=== PATIENT | male | born 1935 | race Caucasian/White ===

== ENCOUNTER 2018-12-05 21:45 | Observation (INO) ==
[2018-12-05] MEDS ORDERED: MORPHINE SULFATE 2 MG/ML DISP.SYRIN IV ONE ×2 (22:20→23:29)
--- NOTE | 2018-12-05 22:24 | ERNOTE ---
Lower Extremity HPI - Narrative Date of Service: 12/05/18 - General Lower Extremities Pain: leg: left Time Seen by Provider: 12/05/18 21:54 Source: patient, family - Immun/Allergies/Home Medications Immunizations: IMMUNIZATION HX Immunizations Up to Date Yes Hx Pneumococcal Vaccination Yes Allergies/Adverse Reactions: Allergies Allergy/AdvReac Type Severity Reaction Status Date / Time No Known Drug Allergies Allergy Verified 12/05/18 22:00 Home Medications: HOME MEDICATIONS Unobtainable 12/06/18 [Last Taken Unknown] - History of Present Illness Narrative: This is an 83-year-old male who comes to the emergency department around 10:00 in the evening. He says that over the last 2 to 3 weeks he has had a progressive swelling in his legs. He says that it is now started to leak fluid. He does have a history of CHF. Tonight he came in because the right leg started hurting and he was concerned he might have a blood clot. He has no history of blood clots in his legs. He is on anticoagulation. He has atrial fibrillation. The patient reports that his mouth is been very dry. He has been talking to his family doctor about the leg swelling and is taken extra doses of Lasix but no help. His urine output has decreased. Patient also says that he is getting progressive dyspnea on exertion and feels like his abdomen is slightly swollen. He just does not feel good. No fever or chills. No chest pain. No coughing. No vomiting or diarrhea. No significant abdominal pain. No headache or blurred vision. Review of Systems - Review of Systems Constitutional: Present: malaise EYE: Present: no symptoms reported ENT: Present: no symptoms reported Respiratory: Present: shortness of breath. Absent: cough, wheezing Cardiology: Present: no symptoms reported Gastrointestinal/Abdominal: Present: other - Feels generally slightly swollen Genitourinary: Present: decreased urinary output Musculoskeletal: Present: other - Swelling both legs Skin: Present: other - Little vesicles on both legs that have popped and are starting to release a clear-colored fluid Neurological: Present: no symptoms reported. Absent: seizure, weakness, numbness Endocrine: Present: no symptoms reported Hematologic/Lymphatic: Present: no symptoms reported Psych: Present: no symptoms reported All Other Systems: All systems neg except as marked Medical History (Updated 12/06/18 @ 00:46 by Evelyn Iniguez) Congestive heart failure Diabetes Hyperlipemia Hypertension Surgical History: Surgical History (Updated 12/06/18 @ 01:33 by Rebecca Biggs, RN) Amputated toe of left foot H/O neck surgery Hx of heart bypass surgery Rotator cuff arthropathy S/P appendectomy Stricture of vein graft Family History: Family History (Updated 12/05/18 @ 22:02 by Aliyah Miles, CARLY) Other No pertinent family history Social History: Preferred Language Malaysian Smoking Status Never smoker Alcohol Use none Drug Use none No Social History Section defined Physical Exam - Physical Exam General Appearance: Present: wd/wn, alert, no apparent distress Head Exam: Present: normal inspection, no evidence of injury Eye Exam: Normal inspection: bilateral, PERRL: bilateral Ears, Nose, Throat: Present: other - Oropharynx is dry. Lips are dry Neck: Present: other - Patient has significant JVD to the ear Respiratory: Present: lungs clear, other - I am unable to hear any crackles on the chest Cardiovascular/Chest: Present: other - Irregularly irregular at a rate of around 100. Systolic murmur over the left upper sternal border loudest Gastrointestinal/Abdominal: Present: normal bowel sounds, nontender, nondistended, soft Back Exam: Present: normal range of motion, no vertebral tenderness Extremity Exam: Present: other - Patient has 3+ pitting edema bilateral lower extremities. The skin of both legs has chronic venous changes. The patient has small vesicles present on both legs below the knee. Some of these have already ruptured. Leaking clear-colored fluid. He is missing his second toe on the left foot. I do not see any cellulitis. Some mild tenderness to palpation over the calf of the right leg Neurological Exam: Present: alert, oriented, normal mood/affect, no motor/sensory deficits Skin Exam: Present: other - Chronic venous stasis changes and vesicles as described above Lymphatic Exam: Present: no adenopathy Progress - Results and Orders Patient's Lab Results:: I have reviewed the patient's lab results. - Vital Signs Patient's Vital Signs:: I have reviewed the patient's vital signs. Vital Signs: Vital Signs 12/05/18 21:54 Temperature 38.0 C Pulse Rate 106 H Respiratory Rate 18 O2 Sat by Pulse Oximetry 97 - EKG EKG #1 EKG read: Interp. by me EKG Comments: EKG demonstrates A. fib with a controlled ventricular rate of 96. However this may also be sinus rhythm. There is a wandering baseline which makes interpretation difficult. [place] is left at -21. Signs of left bundle branch block. I do not see any ST elevation although the computer does interpret this is acute DE with ST elevation. I am ordering a repeat EKG #2 EKG read: Interp. by me EKG Comments: EKG demonstrates what I still believe to be atrial fibrillation with a ventricular rate of 84. QRS is widened at 170. No definite ST elevation. Baseline is again a bit wandering but improved from previous. I cannot identify any definite P waves - X-Ray X-Ray #1 X-Ray: chest Interpretation: Interp. by me X-ray Comments: Chest x-ray shows perhaps some [place] very mild central vascular congestion. No obvious overt failure. No infiltrate. - Progress/Reassessment Chief Complaint: Lower Extremity Pain/ Injury Progress:: Improved Progress Note-Subjective: 12/05/18 23:51 Got better with some pain medicine but then came back needed some more. Going to admit to the hospital Plan - Plan Plan: I discussed the case with the family doctor assistant professor of religion, Dr. Parks. She agrees with me that the patient's elevated troponin is likely a combination of the kidney dysfunction as well as the CHF. She is recommended that I give the patient small dose of Lasix IV, 40 mg. She requests that I repeat the troponin. If it is going up at all I agree with her that transfer would probably be appropriate. Long visits within the same general area the patient could be managed here at least initially with the understanding that if things change significantly he would need to be transferred. The patient is okay with this Departure Clinical Impression: CHF (congestive heart failure) - Departure Disposition: Still a patient Condition: Fair
[2018-12-05 22:37] LABS: Hematocrit 42.8 % (42.0-52.0); Hemoglobin 13.4 gm/dL (13.5-18.0); Mean Cell Volume 97.1 fl (78-100); Mean Corpuscular Hemoglobin 30.4 pg (27-31); Mean Corpuscular Hgb Conc 31.3 g/dl (32-36); Mean Platelet Volume 10.6 fl (8-11.3); Neutrophil # 8.4 K/mm3 (1.3-6.0); Neutrophil % 81.5 % (42-75.0); Platelet Count 119 K/mm3 (150-450); Red Blood Count 4.41 M/mm3 (4.7-6.0); Red Cell Distribution Width 14.4 % (11.5-14.0); White Blood Count 10.2 K/mm3 (4.0-10.5)
[2018-12-05 22:43] LABS: Urine Bilirubin Negative (NEGATIVE); Urine Blood Negative /ul (NEGATIVE); Urine Ketone Negative (NEGATIVE); Urine Nitrite Negative (NEGATIVE); Urine Protein Negative (NEGATIVE); Urine Urobilinogen Normal (NORMAL)
[2018-12-05 22:50] LABS: Urine Appearance Clear (CLEAR); Urine Bacteria TRACE; Urine Color Yellow; Urine RBC None Seen /hpf (0-5); Urine WBC None Seen /hpf (0-5)
[2018-12-05 22:57] LABS: Albumin * 3.7 gm/dl (3.4-5.0); Anion Gap 16.6 mmol/L (6.8-13.8); BUN/Creatinine Ratio 30.2 (9.0-21.6); Bilirubin, Total 1.3 mg/dL (0.0-1.1); Ca. Corrected For Albumin 9.8 mg/dL (8.4-10.2); Calcium * 9.9 mg/dL (7.9-10.9); Carbon Dioxide 27.7 mmol/L (24-32.6); Potassium 3.3 mmol/L (3.4-4.6); Total Protein 8.3 gm/dL (6.2-8.2)
[2018-12-05 22:58] LABS: Troponin I 0.341 ng/mL (0.00-0.10)
[2018-12-05 23:16] LABS: Prothrombin Time (Patient) 18.3 Seconds (9.1-10.7)
[2018-12-05 23:19] LABS: INR 1.89 INR (0.92-1.08)
[2018-12-06] MEDS ORDERED: FUROSEMIDE 10 MG/ML VIAL IV ONE (00:11)
[2018-12-06] MEDS: oxyCODONE HCL/ACETAMINOPHEN 1 TAB TABLET PO PRN ×3 (03:22→17:48)
--- NOTE | 2018-12-06 11:05 | HP ---
Chief Complaint - Chief Complaint Date of Service: 12/06/18 Time of Service: 09:30 Chief Complaint: lower extremity swelling History of Present Illness: Patient with PMHx of CHF, afib on warfarin, previous ME, CKD, DM, chronic abdominal pain since open heart surgery, previous cellulitis, chronic lower extremity ulcers, chronic narcotic use presented to the ED for two weeks of increased swelling and right lower extremity pain. He is prescribed metolazone, and was trying to change his dose to see if the swelling would improve, but it was not beneficial. He states he was prescribed metformin in July, and developed lower extremity swelling at that time, so he stopped it, but has had problems with swelling ever since. He was having some shortness of breath, but denied CP. He has had abdominal pain ever since open heart surgery, and takes percocet and xanax for the pain. He states the xanax always helps his abdominal pain. He also takes 3 stool softeners daily due to constipation from the narcotics. He also has a history of foot ulcers that have been present for years. He has seen multiple providers, and has been unable to get them healed. He had his left 2nd digit amputated because of infection in the bone. His diabetes is well controlled, with an A1C of about 7.1%. He was given 40 mg IV lasix in the ED, and today he reports improvement in his swelling and SOB. Medical History (Updated 12/06/18 @ 13:11 by Aixa Parks DO) Congestive heart failure Diabetes Hyperlipemia Hypertension Surgical History: Surgical History (Updated 12/06/18 @ 01:33 by Rebecca Biggs RN) Amputated toe of left foot H/O neck surgery Hx of heart bypass surgery Rotator cuff arthropathy S/P appendectomy Stricture of vein graft Family History: Family History (Updated 12/05/18 @ 22:02 by Aliyah Miles RN) Other No pertinent family history Social History: Patient Lives/Resources Home Utilized Occupation Retired Preferred Language Armenian Do you have any hoahaoism or Yes: Orthodoxy cultural preference? Smoking Status Never smoker Have you smoked in the past 12 No months Do you dip or chew tobacco No Alcohol Use none Drug Use none No Social History Section defined Review Of Systems (GEN) - Review of Systems Generalized/Overall Review: Absent: Fever Respiratory: Present: Shortness of Breath. Absent: Cough Cardiac: Present: Edema. Absent: Chest Pain Abdominal: Present: Abdominal Pain, Constipation. Absent: Nausea Genitourinary: Present: No Symptoms Reported Musculoskeletal: Present: Joint Pain Skin: Present: Other - 2 ulcers of his left foot, one ulcer of right foot, one ulcer of left medial lower leg Immunizations: IMMUNIZATION HX Immunizations Up to Date Yes Hx Pneumococcal Vaccination Yes Allergies/Adverse Reactions: Allergies Allergy/AdvReac Type Severity Reaction Status Date / Time No Known Drug Allergies Allergy Verified 12/05/18 22:00 Home Medications: HOME MEDICATIONS Allopurinol [Zyloprim (Allopurinol)] 100 mg PO BID 12/06/18 [Last Taken Unknown] Alprazolam 1 mg PO TID PRN 12/06/18 [Last Taken Unknown] Docusate Sodium [Stool Softener] 100 mg PO BID 12/06/18 [Last Taken Unknown] Glimepiride [Amaryl] 2 tab PO BID 12/06/18 [Last Taken Unknown] Metolazone [Zaroxolyn] 5 mg PO DAILY 12/06/18 [Last Taken Unknown] Mupirocin [Bactroban] 1 appl TOPICAL DAILY 12/06/18 [Last Taken Unknown] Potassium Chloride [Klor-Con 10] 40 meq PO BID 12/06/18 [Last Taken Unknown] Warfarin Sodium [Coumadin] 2.5 mg PO MOFR 12/06/18 [Last Taken Unknown] Warfarin Sodium [Coumadin] 5 mg PO SUTUWETHSA 12/06/18 [Last Taken Unknown] oxyCODONE HCL/ACETAMINOPHEN [Percocet 7.5-325 mg Tablet] 1 ea PO QID PRN [Last Taken Unknown] Exam - Exam Vital Signs: Vital Signs - Last Taken Temp 37.1 C 12/06/18 06:16 Pulse 78 12/06/18 06:16 Resp 16 12/06/18 06:16 BP 127/57 12/06/18 06:16 Pulse Ox 95 12/06/18 06:16 Constitutional: Present: Alert, Oriented x3, Cooperative ENT Exam: Present: dry mucous membranes Neck: Absent: lymphadenopathy (R), lymphadenopathy (L) Respiratory: Present: decreased breath sounds. Absent: crackles, rales, rhonchi Cardiovascular/Chest: Present: irregularly irregular, edema - 2+ bilaterally Abdomen: Present: Normal bowel sounds, soft, nontender Skin Exam: Present: other - venous stasis changes of bilateral lower extremities. 2 cm superficial ulcer of medial mid left lower leg. 2 cm and 8 X 2 cm dry, blacked regions of left plantar surface and left heel, 2 cm blackened region of right lateral MP joint without active drainage Neurologic: Present: normal mood/affect Eye contact: Present: good eye contact Diagnostic Studies: Abnormal Lab Results 12/05/18 12/05/18 12/05/18 Range/Units 22:33 22:33 22:33 RBC 4.41 L (4.7-6.0) M/mm3 Hgb 13.4 L (13.5-18.0) gm/dL MCHC 31.3 L (32-36) g/dl RDW 14.4 H (11.5-14.0) % Plt Count 119 L (150-450) K/mm3 Immature Gran # (Auto) 0.04 H (0.000-0.0310) K/mm3 Neutrophils % 81.5 H (42-75.0) % Lymphocytes % 10.8 L (20-51) % Neutrophils # 8.4 H (1.3-6.0) K/mm3 Lymphocytes # 1.10 L (1.5-3.5) k/mm3 ESR (0-10) mm/hr PT 18.3 H (9.1-10.7) Seconds INR (Anticoag Therapy) 1.89 H (0.92-1.08) INR Potassium 3.3 L (3.4-4.6) mmol/L Anion Gap 16.6 H (6.8-13.8) mmol/L BUN 54 H (6-23) mg/dL Creatinine 1.79 H (0.4-1.4) mg/dL Est GFR (Non-Af Amer) 39 L (60-130) mL/min BUN/Creatinine Ratio 30.2 H (9.0-21.6) Random Glucose 186 H (70-110) mg/dL Total Bilirubin 1.3 H (0.0-1.1) mg/dL ALT 17 L (19-67) U/L Alkaline Phosphatase 268 H (50-170) U/L Troponin I 0.341 H* (0.00-0.10) ng/mL B-Natriuretic Peptide 1898 H (5-650) pg/mL Total Protein 8.3 H (6.2-8.2) gm/dL 12/05/18 12/06/18 Range/Units 23:50 09:49 RBC (4.7-6.0) M/mm3 Hgb (13.5-18.0) gm/dL MCHC (32-36) g/dl RDW (11.5-14.0) % Plt Count (150-450) K/mm3 Immature Gran # (Auto) (0.000-0.0310) K/mm3 Neutrophils % (42-75.0) % Lymphocytes % (20-51) % Neutrophils # (1.3-6.0) K/mm3 Lymphocytes # (1.5-3.5) k/mm3 ESR 54 H (0-10) mm/hr PT (9.1-10.7) Seconds INR (Anticoag Therapy) (0.92-1.08) INR Potassium (3.4-4.6) mmol/L Anion Gap (6.8-13.8) mmol/L BUN (6-23) mg/dL Creatinine (0.4-1.4) mg/dL Est GFR (Non-Af Amer) (60-130) mL/min BUN/Creatinine Ratio (9.0-21.6) Random Glucose (70-110) mg/dL Total Bilirubin (0.0-1.1) mg/dL ALT (19-67) U/L Alkaline Phosphatase (50-170) U/L Troponin I 0.301 H* (0.00-0.10) ng/mL B-Natriuretic Peptide (5-650) pg/mL Total Protein (6.2-8.2) gm/dL Laboratory Results WBC 10.2 K/mm3 (4.0-10.5) 12/05/18 22:33 RBC 4.41 M/mm3 (4.7-6.0) L 12/05/18 22:33 Hgb 13.4 gm/dL (13.5-18.0) L 12/05/18 22:33 Hct 42.8 % (42.0-52.0) 12/05/18 22:33 MCV 97.1 fl (78-100) 12/05/18 22:33 MCH 30.4 pg (27-31) 12/05/18 22:33 MCHC 31.3 g/dl (32-36) L 12/05/18 22:33 RDW 14.4 % (11.5-14.0) H 12/05/18 22:33 Plt Count 119 K/mm3 (150-450) L 12/05/18 22:33 MPV 10.6 fl (8-11.3) 12/05/18 22:33 Immature Gran % (Auto) 0.40 % (0.001-0.429) 12/05/18 22: Immature Gran # (Auto) 0.04 K/mm3 (0.000-0.0310) H 12/05/18 22:33 81.5 % (42-75.0) H 12/05/18 22:33 10.8 % (20-51) L 12/05/18 22:33 5.6 % (0.0-9) 12/05/18 22:33 1.2 % (0.0-3.0) 12/05/18 22:33 0.5 % (0.0-1.0) 12/05/18 22: Nucleated RBC % 0.0 k/mm3 (0-1) 12/05/18 22:33 8.4 K/mm3 (1.3-6.0) H 12/05/18 22:33 1.10 k/mm3 (1.5-3.5) L 12/05/18 22:33 0.6 k/mm3 (0.0-1.0) 12/05/18 22:33 0.1 k/mm3 (0.0-0.7) 12/05/18 22:33 Absolute Basophils 0.1 k/mm3 (0.0-0.1) 12/05/18 22:33 ESR 54 mm/hr (0-10) H 12/06/18 09:49 PT 18.3 Seconds (9.1-10.7) H 12/05/18 22:33 INR (Anticoag Therapy) 1.89 INR (0.92-1.08) H 12/05/18 22:33 Sodium 141 mmol/L (132-142) 12/05/18 22:33 142 mmol/L (130-142) 12/05/18 22:33 Potassium 3.3 mmol/L (3.4-4.6) L 12/05/18 22:33 Chloride 100 mmol/L (97-106) 12/05/18 22:33 Carbon Dioxide 27.7 mmol/L (24-32.6) 12/05/18 22:33 16.6 mmol/L (6.8-13.8) H 12/05/18 22:33 BUN 54 mg/dL (6-23) H 12/05/18 22:33 1.79 mg/dL (0.4-1.4) H 12/05/18 22:33 Est GFR (Non-Af Amer) 39 mL/min (60-130) L 12/05/18 22:33 30.2 (9.0-21.6) H 12/05/18 22:33 186 mg/dL (70-110) H 12/05/18 22:33 Calcium 9.9 mg/dL (7.9-10.9) 12/05/18 22:33 Calcium Adj for Albumin 9.8 mg/dL (8.4-10.2) 12/05/18 22:33 1.3 mg/dL (0.0-1.1) H 12/05/18 22:33 AST 18 U/L (0-48) 12/05/18 22:33 ALT 17 U/L (19-67) L 12/05/18 22:33 268 U/L (50-170) H 12/05/18 22:33 0.301 ng/mL (0.00-0.10) H* 12/05/18 23:50 B-Natriuretic Peptide 1898 pg/mL (5-650) H 12/05/18 22:33 8.3 gm/dL (6.2-8.2) H 12/05/18 22:33 3.7 gm/dl (3.4-5.0) 12/05/18 22:33 Yellow 12/05/18 22:25 Clear (CLEAR) 12/05/18 22:25 6.0 pH (5.0-7.0) 12/05/18 22:25 Ur Specific [place] 1.010 SP.GR. (1.005-1.030) 12/05/18 22:25 Negative mg/dL (NEGATIVE) 12/05/18 22:25 Negative mg/dL (NEGATIVE) 12/05/18 22:25 Negative mg/dL (NEGATIVE) 12/05/18 22:25 Negative /ul (NEGATIVE) 12/05/18 22:25 Negative (NEGATIVE) 12/05/18 22:25 Negative mg/dl (NEGATIVE) 12/05/18 22:25 Normal EU/dl (NORMAL) 12/05/18 22:25 Ur Leukocyte Esterase Negative /ul (NEGATIVE) 12/05/18 22:25 None seen /hpf (0-5) 12/05/18 22:25 None seen /hpf (0-5) 12/05/18 22:25 Ur Epithelial Cells 0-5 /hpf (0-5) 12/05/18 22:25 Trace (NONE) 12/05/18 22:25 No culture indicated 12/05/18 22:25 Assessment/Plan - Assessment/Plan (1) Lower extremity ulceration Assessment: Dr. Hook and the wound center have been consulted. ESR of 54 makes osteomyelitis unlikely. Foot xrays have been taken, but not yet read. They do not appear infected, and antibiotics not started. Recommend optimizing his CHF, and getting him established with the wound center after DC for chcf healing. Problem: Chronic (2) Atrial fibrillation Assessment: Metoprolol listed on his previous medication list, but he reports not taking it currently. He takes warfarin, and his INR yesterday was 1.9. Heart rate appropriate in the 70's. Problem: Chronic (3) Chronic renal disease Assessment: Creatinine of 1.7, GFR of 39. He reports being told by his parker that his renal disease is stable. Repeat CMP ordered for the am. Problem: Chronic (4) Chronic abdominal pain Assessment: He feels like xanax and percocet are necessary to manage his abdominal pain, which has not been diagnosed. There is a chance he may have opiate induced hyperalgesia. It was discussed with him that these meds are contraindicated together, as they can cause respiratory depression, and recommend discontinuing at least one of them. Problem: Chronic (5) Diabetes mellitus Assessment: He reports his A1C was around 7.1%. Problem: Chronic Qualifiers: Diabetes mellitus type: type 2 Diabetes mellitus exterminator insulin use: without chcf use (6) CHF (congestive heart failure) Assessment: He was given 40 mg IV lasix last night, and reports improvement with his swelling. Potential DC tomorrow. Troponin was 0.341, decreased to 0.301 on repeat. He denied CP, and this was thought to be a combination of CHF exacerbation and CKD. Problem: Chronic Qualifiers: Heart failure chronicity: acute on chronic (7) Joint pain Assessment: Pt reports also taking the percocet for joint pain. Problem: Chronic
[2018-12-06] MEDS ORDERED: [UNRECOGNIZED DRUG - OTHER] PO PRN (14:19)
[2018-12-06] MEDS ORDERED: OXYCODONE HCL PO PRN (14:19)
[2018-12-06] MEDS ORDERED: ACETAMINOPHEN PO PRN (14:19)
--- NOTE | 2018-12-06 14:23 | CONS ---
[facility] - General Date of Service: 12/06/18 Narrative: Patient is an 83 year old male, recently admitted to the hospital due to increased swelling and pain in his lower extremities. He states that he has long-standing ulcers to both feet, and has noted drainage from an area on the left lower leg. The patient shares that his left second toe was removed in February 2018, due to infection in the bone. He states that he is using an antibiotic ointment, applied daily. The patient's medical history includes congestive heart failure, atrial fibrillation, VT, chronic kidney disease and diabetes. Source: patient, family - History of Present Illness Timing/Duration: changing over time Allergies/Adverse Reactions: Allergies No Known Drug Allergies Allergy (Verified 12/05/18 22:00) Home Medications: Home Medications Medication Instructions Recorded Last Taken Allopurinol [Zyloprim 100 mg PO BID 12/06/18 Unknown (Allopurinol)] Alprazolam 1 mg PO TID PRN 12/06/18 Unknown Docusate Sodium [Stool Softener] 100 mg PO BID 12/06/18 Unknown Glimepiride [Amaryl] 2 tab PO BID 12/06/18 Unknown Metolazone [Zaroxolyn] 5 mg PO DAILY 12/06/18 Unknown Mupirocin [Bactroban] 1 appl TOPICAL DAILY 12/06/18 Unknown Potassium Chloride [Klor-Con 10] 40 meq PO BID 12/06/18 Unknown Warfarin Sodium [Coumadin] 2.5 mg PO MOFR 12/06/18 Unknown Warfarin Sodium [Coumadin] 5 mg PO SUTUWETHSA 12/06/18 Unknown oxyCODONE HCL/ACETAMINOPHEN 1 ea PO QID PRN 12/06/18 Unknown [Percocet 7.5-325 mg Tablet] Procedures Insertion of intraocular lens prosthesis at time of cataract extraction, one- stage (03/25/12) Phacoemulsification and aspiration of cataract (03/25/12) Medications - Medications Current Medications: Current Medications Oxycodone/Acetaminophen (Percocet 5 Mg/325 Mg) 1 tab PO Q6H PRN PRN Reason: Pain Stop: 01/05/19 03:03 Last Admin: 12/06/18 11:46 Dose: 1 tab Documented by: Review of Systems - Review of Systems Generalized/Overall Review: Absent: Chills, Fever EENTM: Absent: Nose Congestion Respiratory: Absent: Cough Cardiac: Absent: Chest Pain, Edema Abdominal: Absent: Nausea, Vomiting Musculoskeletal: Present: Joint Pain, Muscle Pain Neurological: Absent: Headache Skin: Present: Lesions Physical Examination - Exam Vital Signs: Vital Signs - Last Taken Temp 37.0 C 12/06/18 12:00 Pulse 74 12/06/18 13:54 Resp 16 12/06/18 12:00 BP 153/52 H 12/06/18 12:00 Pulse Ox 96 12/06/18 12:00 O2 Oxygen Delivery Method Room Air Constitutional: Present: Alert, Cooperative, No distress ENT Exam: Present: hearing grossly normal Peripheral Pulses: dorsalis-pedis (R): 0 - pulses are not palpable, dorsalis- pedis (L): 0 Skin Exam: Present: other - There is a superficial open area on the left lower leg, measures ~ 3.0 x 1.5 x 0.1. large amount of red granulation. moderate amount of serous drainage. no erythema. no necrosis. there is an area on the right distal lateral foot, measuring ~ 2cm in circumference. large amount of black necrosis and soft tissue. no drainage. the left heel has an area ~ 3cm in circumference that appears to be healing, with no drainage. there is a calloused area on the left metatarsal area. - Results and Findings: Lab/Microbiology results last 24 hrs: Abnormal/Pending Laboratory Last 24 HRS 12/06/18 12/05/18 12/05/18 09:49 23:50 22:33 RBC Hgb MCHC RDW Plt Count Immature Gran # (Auto) Neutrophils % Lymphocytes % Neutrophils # Lymphocytes # ESR 54 H PT 18.3 H INR (Anticoag Therapy) 1.89 H Potassium Anion Gap BUN Creatinine Est GFR (Non-Af Amer) BUN/Creatinine Ratio Random Glucose Total Bilirubin ALT Alkaline Phosphatase Troponin I 0.301 H* B-Natriuretic Peptide Total Protein 12/05/18 12/05/18 22:33 22:33 RBC 4.41 L Hgb 13.4 L MCHC 31.3 L RDW 14.4 H Plt Count 119 L Immature Gran # (Auto) 0.04 H Neutrophils % 81.5 H Lymphocytes % 10.8 L Neutrophils # 8.4 H Lymphocytes # 1.10 L ESR PT INR (Anticoag Therapy) Potassium 3.3 L Anion Gap 16.6 H BUN 54 H Creatinine 1.79 H Est GFR (Non-Af Amer) 39 L BUN/Creatinine Ratio 30.2 H Random Glucose 186 H Total Bilirubin 1.3 H ALT 17 L Alkaline Phosphatase 268 H Troponin I 0.341 H* B-Natriuretic Peptide 1898 H Total Protein 8.3 H - Assessments/Findings (1) Lower extremity ulceration Problem: Chronic (2) Ulcer of left lower leg Problem: Acute (3) Diabetic ulcer of right foot Problem: Acute (4) Diabetic ulcer of left foot Diagnosis(s): It appears that x-ray studies of the feet were obtained. Would recommend that Dr Hook advise for treatment of the foot ulcers. The left lower leg ulcer would benefit from Aquacel Ag, covered with gauze. This can be changed daily. They should wash the area thoroughly with soap and water at dressing changes. The patient's pulses were not palpable. He states that he had MITUL's performed in February, prior to surgery, and those results were good at that time. May consider repeating the MITUL's, or a referral for further vascular evaluation. Problem: Acute
--- NOTE | 2018-12-06 14:30 | CONS ---
- Reason for consultation (1) Diabetic ulcer of right foot Date of Service: 12/06/18 (2) Diabetic ulcer of left foot Date of Service: 12/06/18 HPI - General Date of Service: 12/06/18 Narrative: Pt is evaluated at bedside resting. He was admitted from the ED overnight with COPD, with increasing swelling and pain in his legs. He was also found to have ulcerations present to both of his feet as well as to his left lower leg. He states that he has had ulcerations for several years, and no one has been able to get them to heal. 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 This was done in February,, and he continues to have trouble with an ulceration to this area. States that he was soaking his foot to keep the skin around the ulcer soft, and that is what started the possible ulceration to his left heel. He also reports an ulcer to his right lateral foot at the area of the 5th metatarsal head. Relates this is the ulceration that causes him the most pain when he walks. He states that he has orthotics in his shoes that area supposed to be offloading his ulcerations, but states they were not custom fitted to his feet. He also states that he has had MITUL's completed prior to his amputation, and was told his circulation was fine. I was consulted for care of his foot ulcerations. Source: patient Exam Limitations: no limitations - History of Present Illness Allergies/Adverse Reactions: Allergies No Known Drug Allergies Allergy (Verified 12/05/18 22:00) Home Medications: Home Medications Medication Instructions Recorded Last Taken Allopurinol [Zyloprim 100 mg PO BID 12/06/18 Unknown (Allopurinol)] Alprazolam 1 mg PO TID PRN 12/06/18 Unknown Docusate Sodium [Stool Softener] 100 mg PO BID 12/06/18 Unknown Glimepiride [Amaryl] 2 tab PO BID 12/06/18 Unknown Metolazone [Zaroxolyn] 5 mg PO DAILY 12/06/18 Unknown Mupirocin [Bactroban] 1 appl TOPICAL DAILY 12/06/18 Unknown Potassium Chloride [Klor-Con 10] 40 meq PO BID 12/06/18 Unknown Warfarin Sodium [Coumadin] 2.5 mg PO MOFR 12/06/18 Unknown Warfarin Sodium [Coumadin] 5 mg PO SUTUWETHSA 12/06/18 Unknown oxyCODONE HCL/ACETAMINOPHEN 1 ea PO QID PRN 12/06/18 Unknown [Percocet 7.5-325 mg Tablet] Procedures Insertion of intraocular lens prosthesis at time of cataract extraction, one- stage (03/25/12) Phacoemulsification and aspiration of cataract (03/25/12) Medications - Medications Current Medications: Current Medications Oxycodone/Acetaminophen (Percocet 5 Mg/325 Mg) 1 tab PO Q6H PRN PRN Reason: Pain Stop: 01/05/19 03:03 Last Admin: 12/06/18 11:46 Dose: 1 tab Documented by: Review of Systems - Review of Systems Generalized/Overall Review: Absent: Chills, Fever Respiratory: Present: Shortness of Breath Cardiac: Present: Edema Abdominal: Absent: Nausea, Vomiting, Constipation, Diarrhea Musculoskeletal: Present: Other - foot and leg pain Neurological: Present: Numbness Skin: Present: Other - ulcerations to feet Physical Examination - Exam Vital Signs: Vital Signs - Last Taken Temp 37.0 C 12/06/18 12:00 Pulse 74 12/06/18 13:54 Resp 16 12/06/18 12:00 BP 153/52 H 12/06/18 12:00 Pulse Ox 96 12/06/18 12:00 O2 Oxygen Delivery Method Room Air Constitutional: Present: Alert, Oriented x3, Cooperative Peripheral Pulses: dorsalis-pedis (R): 0 - PT pulse non-palpable, dorsalis-pedis (L): 0 - PT pulse non-palpable Extremity: Present: lower extremity edema - improved with current diuresis Skin Exam: Present: other - Ulcerations noted to b/l feet. Ulceration #1 located to plantar surface of left 2nd metatarsal head, measuring 0.2 x 0.3 x 0.1 cm. No tunneling or undermining. Loss of tissue to full thickness with exposure of subcutaneous fat layer. Base mostly red, granular. Surrounding tissue hyperkeratotic. Scant serous drainage, no malodor. No exposed tendon or bone. Also present to the left heel is what appears as a deep tissue injury that now has developed dry, stable scab. There is no active drainage to the area, no breaks in skin, no redness. Ulceration #2 is located to the right plantar 5th metatarsal head, measuring 0.87 x 1 x 0.1 cm. No tunneling or undermining. Loss of tissue to full thickness with exposure of subcutaneous fat layer. Base mostly red, granular with some yellow fibrotic slough tissue intermixed. Surrounding tissue callused and slight macerated. There is a minimal amount of serosanguinous drainage, no malodor. No exposed tendon or bone. B/l lower legs with significant peeling/scaling with reduction in edema. Hyperpigmentation note to lower legs and feet. Neurologic: Present: sensory deficit Appearance: Present: appropriate appearance - Results and Findings: Lab/Microbiology results last 24 hrs: Abnormal/Pending Laboratory Last 24 HRS 12/06/18 12/05/18 12/05/18 09:49 23:50 22:33 RBC Hgb MCHC RDW Plt Count Immature Gran # (Auto) Neutrophils % Lymphocytes % Neutrophils # Lymphocytes # ESR 54 H PT 18.3 H INR (Anticoag Therapy) 1.89 H Potassium Anion Gap BUN Creatinine Est GFR (Non-Af Amer) BUN/Creatinine Ratio Random Glucose Total Bilirubin ALT Alkaline Phosphatase Troponin I 0.301 H* B-Natriuretic Peptide Total Protein 12/05/18 12/05/18 22:33 22:33 RBC 4.41 L Hgb 13.4 L MCHC 31.3 L RDW 14.4 H Plt Count 119 L Immature Gran # (Auto) 0.04 H Neutrophils % 81.5 H Lymphocytes % 10.8 L Neutrophils # 8.4 H Lymphocytes # 1.10 L ESR PT INR (Anticoag Therapy) Potassium 3.3 L Anion Gap 16.6 H BUN 54 H Creatinine 1.79 H Est GFR (Non-Af Amer) 39 L BUN/Creatinine Ratio 30.2 H Random Glucose 186 H Total Bilirubin 1.3 H ALT 17 L Alkaline Phosphatase 268 H Troponin I 0.341 H* B-Natriuretic Peptide 1898 H Total Protein 8.3 H - Assessments/Findings (1) Diabetic ulcer of right foot Diagnosis(s): Discussed ulcerations and treatment options. Verbal consent obtained from patient for debridement of ulcerations at bedside. Ulcerations to both right and left forefoot debrided to subcutaneous tissue with #15 blade, excising all hyperkeratotic tissue from the periphery of these ulcerations, revealing a healthy, bleeding wound margin. Surfaces also debrided with #15 blade, excising all devitalized tissue revealing a healthy, bleeding, subcutaneous wound bed. Hemostasis with compression. Pt tolerated procedures well without complication. Ulcerations dressed today with dry gauze, alba, and an ROSEANN bandage. These dressings are to be changed daily at home. Wash feet well with soap and water and pat dry with clean towels prior to applying new dressings. Deep tissue injury to left heel is very stable at this time, and appears to be covered with dry scab. Do not pick at scab, allow it to peel off on its own. Discussed care of ulcerations moving forward. Advise routine follow up in the wound center. Will begin receiving wound care in the wound center on Sunday. Will plan referral to [facility] for eval and fitting for DM shoes/orthotics. Discussed circulation with patient, and inability to feel his pulses in his feet, which could be contributing to the poor healing of his ulcerations. Advise repeat MITUL, and would like to compare to previous MITUL done in [place] prior to his surgery. Will have patient sign a release of information to have those results sent to the wound center when he comes for his first visit on Sunday. Can also plan to order MITUL at that time if d/c planned prior to being able to complete this testing. Pending results of this study, would advise evaluation with vascular surgery. Ok for d/c home once stable from medical standpoint. Problem: Chronic Qualifiers: Diabetic foot ulcer location: other Diabetes mellitus type: type 2 Non- pressure ulcer stage: with fat layer exposed Qualified Code(s): E11.621 - Type 2 diabetes mellitus with foot ulcer; L97.512 - Non-pressure chronic ulcer of other part of right foot with fat layer exposed (2) Diabetic ulcer of left foot Diagnosis(s): As above. Problem: Chronic Qualifiers: Diabetic foot ulcer location: other Diabetes mellitus type: type 2 Non- pressure ulcer stage: with fat layer exposed Qualified Code(s): E11.621 - Type 2 diabetes mellitus with foot ulcer; L97.522 - Non-pressure chronic ulcer of other part of left foot with fat layer exposed
[2018-12-06] MEDS ORDERED: WARFARIN SODIUM 2.5 MG TABLET PO SCH (17:00)
[2018-12-06] MEDS: GLIMEPIRIDE 4 MG TABLET PO SCH (17:05)
[2018-12-06] MEDS: POTASSIUM CHLORIDE 10 MEQ TABLET.SA PO SCH (17:06)
[2018-12-06] MEDS ORDERED: WARFARIN SODIUM 5 MG TABLET PO SCH (17:30)
[2018-12-06] MEDS: ALLOPURINOL 100 MG TABLET PO SCH (21:05)
[2018-12-06] MEDS: DOCUSATE SODIUM 100 MG CAPSULE PO SCH (21:05)
[2018-12-07] MEDS: oxyCODONE HCL/ACETAMINOPHEN 1 TAB TABLET PO PRN (03:04)
[2018-12-07 06:24] LABS: Prothrombin Time (Patient) 19.5 Seconds (9.1-10.7)
[2018-12-07 06:29] LABS: Albumin * 2.9 gm/dl (3.4-5.0); BUN/Creatinine Ratio 32.1 (9.0-21.6); Bilirubin, Total 1.6 mg/dL (0.0-1.1); Ca. Corrected For Albumin 9.6 mg/dL (8.4-10.2); Carbon Dioxide 27.1 mmol/L (24-32.6); Potassium 3.1 mmol/L (3.4-4.6); Total Protein 7.1 gm/dL (6.2-8.2)
[2018-12-07 06:33] LABS: INR 2.02 INR (0.92-1.08)
[2018-12-07] MEDS: GLIMEPIRIDE 4 MG TABLET PO SCH (07:28)
[2018-12-07] MEDS ORDERED: METOLAZONE 5 MG TABLET PO SCH (09:00)
[2018-12-07] MEDS: ALLOPURINOL 100 MG TABLET PO SCH (09:12)
[2018-12-07] MEDS: POTASSIUM CHLORIDE 10 MEQ TABLET.SA PO SCH (09:12)
[2018-12-07] MEDS: DOCUSATE SODIUM 100 MG CAPSULE PO SCH (09:13)
[2018-12-07] MEDS ORDERED: FUROSEMIDE 10 MG/ML VIAL IV ONE (09:16)
--- NOTE | 2018-12-07 11:32 | DS ---
Description of Stay: Pleasant 83-year-old male who was admitted to the hospital for CHF exacerbation and lower extremity leg pain from swelling. He did well during his stay here. He was diuresed which had significant improvement of his pain. Upon the day of discharge he denied shortness of breath or cough. Patient currently takes metolazone only for diuresis, will add a low-dose daily Lasix to be taken with this medication to hopefully help with his lower extremity swelling as metolazone has not appeared to be enough for him. He does have chronic kidney disease which was stable while here. Patient has chronic lower extremity ulcerations, he was seen by both wound care and Dr. Hook podiatry. It was thought that these are not infectious in nature and he has an appointment to follow-up with Dr. Hook early next week for continued debridement and treatment of these ulcerations which he agrees to do. Upon the day of discharge he was feeling well aside from recurring lower extremity pressure worse in his right leg and his left. He was given another dose of IV Lasix along with his metolazone prior to being discharged. Advised patient to follow-up with his PCP in the next 1 week or so to discuss recent hospitalization and better treatment for his lower extremely swelling. Pertinent labs while here include mildly elevated troponins that trended downward, and INR of 2.02 upon discharge, a GFR of 39 initially that trended upward to 43 and a creatinine of 1.79 that trended downward to 1.65 upon day of discharge. UA was negative and his CBC showed him to have a normal white count, normal hemoglobin and hematocrit. His vital signs were stable throughout his stay here. Procedures Performed: none Results and Findings: Lab Pending Results 12/05/18 22:25: Urine Color Yellow, Urine Appearance Clear, Urine pH 6.0, Ur Specific [address] 1.010, Urine Protein Negative, Urine Glucose (UA) Negative, Urine Ketones Negative, Urine Blood Negative, Urine Nitrate Negative, Urine Bilirubin Negative, Urine Urobilinogen Normal, Ur Leukocyte Esterase Negative, Urine RBC None seen, Urine WBC None seen, Ur Epithelial Cells 0-5, Urine Bacteria Trace, Urine Culture Comments No culture indicated 12/05/18 22:33: WBC 10.2, RBC 4.41 L, Hgb 13.4 L, Hct 42.8, MCV 97.1, MCH 30.4, MCHC 31.3 L, RDW 14.4 H, Plt Count 119 L, MPV 10.6, Immature Gran % (Auto) 0.40, Immature Gran # (Auto) 0.04 H, Neutrophils % 81.5 H, Lymphocytes % 10.8 L, Mon ocytes % 5.6, Eosinophils % 1.2, Basophils % 0.5, Nucleated RBC % 0.0, Neutrophils # 8.4 H, Lymphocytes # 1.10 L, Monocytes # 0.6, Eosinophils # 0.1, Absolute Basophils 0.1 12/05/18 22:33: Sodium 141, Plasma Sodium 142, Potassium 3.3 L, Chloride 100, Carbon Dioxide 27.7, Anion Gap 16.6 H, BUN 54 H, Creatinine 1.79 H, Est GFR (Non-Af Amer) 39 L, BUN/Creatinine Ratio 30.2 H, Random Glucose 186 H, Calcium 9.9, Calcium Adj for Albumin 9.8, Total Bilirubin 1.3 H, AST 18, ALT 17 L, Alkaline Phosphatase 268 H, Troponin I 0.341 H*, B-Natriuretic Peptide 1898 H, Total Protein 8.3 H, Albumin 3.7 12/05/18 22:33: PT 18.3 H, INR (Anticoag Therapy) 1.89 H 12/05/18 23:50: Troponin I 0.301 H* 12/06/18 09:49: ESR 54 H 12/07/18 06:00: PT 19.5 H, INR (Anticoag Therapy) 2.02 H 12/07/18 06:00: Sodium 134, Plasma Sodium 136, Potassium 3.1 L, Chloride 98, Carbon Dioxide 27.1, Anion Gap 12.0, BUN 53 H, Creatinine 1.65 H, Est GFR (Non- Af Amer) 43 L, BUN/Creatinine Ratio 32.1 H, Random Glucose 198 H, Calcium 9.0, Calcium Adj for Albumin 9.6, Total Bilirubin 1.6 H, AST 16, ALT 16 L, Alkaline Phosphatase 196 H, Total Protein 7.1, Albumin 2.9 L Discharge Location: Home Disposition: Home self-care Condition: Fair Discharge Activity: Activity as tolerated Discharge Diet: Consistent carbs Referrals: Wei Prince DO [Primary Care Provider] - One Week Additional Patient Instructions (free text): Follow up with Dr Monster in the wound center on Sunday 12/10. Cover scabbed areas on left and right foot with gauze to cushion, roll gauze and ROSEANN wrap (loosely). Daily dressing change to left leg wound with aquacel AG and gauze. Prescriptions (Any new or edited meds): Furosemide [Lasix] 40 mg PO DAILY #30 tab Complete Home Medications List: Complete Home Medication List: Allopurinol [Zyloprim] 100 mg PO BID 12/06/18 Alprazolam 1 mg PO TID PRN 12/06/18 Docusate Sodium [Stool Softener] 100 mg PO BID 12/06/18 Glimepiride [Amaryl] 2 tab PO BID 12/06/18 Metolazone [Zaroxolyn] 5 mg PO DAILY 12/06/18 Mupirocin [Bactroban] 1 appl TOPICAL DAILY 12/06/18 Potassium Chloride [Klor-Con 10] 40 meq PO BID 12/06/18 Warfarin Sodium [Coumadin] 2.5 mg PO MOFR 12/06/18 Warfarin Sodium [Coumadin] 5 mg PO SUTUWETHSA 12/06/18 oxyCODONE HCL/ACETAMINOPHEN [Percocet 7.5-325 mg Tablet] 1 ea PO QID PRN 12/06/18 Furosemide [Lasix] 40 mg PO DAILY #30 tab 12/07/18
[2018-12-07 15:55] VITALS: BP 117/54
[2018-12-07] MEDS ORDERED: WARFARIN SODIUM 5 MG TABLET PO SCH (17:00)
== END 2018-12-07 13:38 | disposition home or self-care (01) ==
LOC: ER 21:45 → INTOOBSV 12-06 00:14 → MS 12-06 00:14
PROVIDERS: ADMIT Family Medicine; ATTEND Family Medicine
CPT/HCPCS: 11042; 36415; 71010; 71045; 73630; 80053; 81001; 83519; 83880; 84484; 85025; 85610; 85652; 93005; 96374; 96375; 99285; G0378